=== PATIENT | female | born 1995 | race Two or more races ===

== ENCOUNTER → 2024-03-16 | Outpatient (CLI) | payer BC, SELFPAY ==
[2024-03-16 08:14] LABS: Collection Type, Urine Clean Catch
[2024-03-16 08:33] LABS: Basophils # (Auto) 0.1 Thou/mm3 (0.0-0.2); Basophils % (Auto) 1 % (0-2.5); Eosinophils # (Auto) 0.2 Thou/mm3 (0.0-0.5); Eosinophils % (Auto) 2 % (0-10); Hematocrit 40.5 % (36.0-46.0); Hemoglobin 13.7 g/dL (12.0-16.0); Immature Granulocytes % (Auto) 0 % (0-0); Immature Granulocytes Auto 0.02 Thou/mm3 (0.00-0.00); Lymphocytes # (Auto) 2.2 Thou/mm3 (1.0-4.8); Lymphocytes % (Auto) 28 % (10-50); Mean Corpuscular HGB Conc 33.8 g/dl (31.0-37.0); Mean Corpuscular Hemoglobin 26.4 pg (25.0-35.0); Mean Corpuscular Volume 78 fL (80-100); Monocytes # (Auto) 0.4 Thou/mm3 (0.0-0.8); Monocytes % (Auto) 6 % (0-12); Neutrophils # (Auto) 4.9 Thou/mm3 (1.8-7.7); Neutrophils % (Auto) 63 % (37-80); Nucleated Red Blood Cell % 0 /100 WBC (0); Platelet Count 272 Thou/mm3 (140-440); RDW Standard Deviation 39.2 fL (36.4-46.3); Red Blood Count 5.19 Miln/mm3 (4.00-5.20); White Blood Count 7.8 Thou/mm3 (3.6-11.0)
[2024-03-16 08:37] LABS: Bilirubin,Urine Negative (Negative); Blood,Urine Negative (Negative); Clarity,Urine Clear (Clear/Hazy); Color,Urine Lt-Yellow (Lt Yel-Yel); Culture Indicated,Urine Not Indicated; Glucose, Urine Negative (Negative); Ketones,Urine Negative (Negative); Leukocyte Esterase,Urine Negative (Negative); Nitrite,Urine Negative (Negative); Protein,Urine Negative (Neg - Trace); RBC,Urine 5 /hpf (0-3); Specific Gravity,Urine 1.022 (1.001-1.035); Squamous Epithelial Cell,Urine 4 /hpf (0-5); Urobilinogen,Urine Negative mg/dL (0.0-1.0); WBC,Urine 1 /hpf (0-5)
[2024-03-16 08:45] LABS: Glucose Estimated Average 134 mg/dL (80-131); Hemoglobin A1C 6.3 % Hgb (4.8-6.0)
[2024-03-16 09:13] LABS: Alanine Aminotransferase 16 U/L (10-49); Albumin, Serum 4.6 gm/dL (3.5-5.0); Albumin/Globulin Ratio 1.8 (1.2-2.2); Alkaline Phosphatase 65 U/L (46-116); Anion Gap 8 (7-16); Aspartate Amino Transferase 13 U/L (0-34); BUN/Creatinine Ratio 11 Ratio (12-20); Bilirubin,Total 0.4 mg/dL (0.3-1.2); Blood Urea Nitrogen 8 mg/dL (9-23); Calcium 9.6 mg/dL (8.3-10.6); Calcium (Corrected) 9.6 mg/dL (8.5-10.1); Carbon Dioxide 25.6 mMol/L (20.0-31.0); Cardiac Risk Estimate 5.1 RATIO (3.7-5.6); Chloride 103 mMol/L (98-107); Cholesterol 157 mg/dL (132-200); Creatinine (Component) 0.7 mg/dL (0.6-1.3); Globulin 2.5 gm/dL (2.3-3.5); Glucose 137 mg/dL (74-106); HDL Cholesterol 31 mg/dL (40-60); LDL Cholesterol,Calculated 88 mg/dL (0-130); Osmolality,Calculated 274 (275-295); Potassium 4.8 mMol/L (3.4-5.1); Sodium 137 mMol/L (136-145); Total Protein 7.1 gm/dL (5.7-8.2); Triglycerides 189 mg/dL (30-150); eGFR > 60 See Note
== END | disposition home or self-care (01) ==
LOC: COPL 06:57
PROVIDERS: PCP Family Medicine; Referring Provider Nurse Practitioner Family; Visit Provider Nurse Practitioner Family
DX: Z00.00 Encounter for general adult medical examination without abnormal findings (principal)
CPT/HCPCS: 36415; 80053; 80061; 81001; 83036; 85025

== ENCOUNTER → 2024-03-27 | Outpatient (CLI) | payer BC, SELFPAY ==
[2024-03-27 16:54] LABS: Beta HCG,Quantitative 17 mIU/mL (<5.0)
[2024-04-06 07:03] LABS: Progesterone,LC/MS* 9.5 ng/mL
== END | disposition home or self-care (01) ==
LOC: SLDO 15:07
PROVIDERS: Referring Provider Specialist; Visit Provider Specialist
DX: N93.9 Abnormal uterine and vaginal bleeding, unspecified (principal)
CPT/HCPCS: 36415; 84144; 84702

== ENCOUNTER → 2024-04-10 | Outpatient (CLI) | payer BC, SELFPAY ==
[2024-04-10 19:12] LABS: Beta HCG,Quantitative 7810 mIU/mL (<5.0)
[2024-04-14 06:35] LABS: Progesterone,LC/MS* 7.7 ng/mL
== END | disposition home or self-care (01) ==
LOC: SLDO 17:02
PROVIDERS: Referring Provider Specialist; Visit Provider Specialist
DX: O36.80X0 Pregnancy with inconclusive fetal viability, not applicable or unspecified (principal); Z3A.00 Weeks of gestation of pregnancy not specified
CPT/HCPCS: 36415; 84144; 84702

== ENCOUNTER → 2024-04-24 | Outpatient (CLI) | payer BC, SELFPAY ==
[2024-04-24 08:27] LABS: Collection Type, Urine Clean Catch
[2024-04-24 08:39] LABS: Cardiac Risk Estimate 3.5 RATIO (3.7-5.6); Cholesterol 133 mg/dL (132-200); HDL Cholesterol 38 mg/dL (40-60); LDL Cholesterol,Calculated 62 mg/dL (0-130); Triglycerides 165 mg/dL (30-150)
[2024-04-24 08:52] LABS: Glucose Estimated Average 128 mg/dL (80-131); Hemoglobin A1C 6.1 % Hgb (4.8-6.0)
[2024-04-24 10:08] LABS: Bacteria,Urine Rare; Bilirubin,Urine Negative (Negative); Blood,Urine Negative (Negative); Color,Urine Yellow (Lt Yel-Yel); Culture Indicated,Urine Not Indicated; Glucose, Urine Negative (Negative); Ketones,Urine Negative (Negative); Leukocyte Esterase,Urine Positive (Negative); Nitrite,Urine Negative (Negative); PH,Urine 6.5 (5.0-7.0); Protein,Urine 1+ (Neg - Trace); Specific Gravity,Urine 1.031 (1.001-1.035); Urobilinogen,Urine Negative mg/dL (0.0-1.0)
[2024-04-24 12:53] LABS: Clarity,Urine Clear (Clear/Hazy); RBC,Urine 2 /hpf (0-3); Squamous Epithelial Cell,Urine 13 /hpf (0-5); WBC,Urine 3 /hpf (0-5)
== END | disposition home or self-care (01) ==
PROVIDERS: PCP Family Medicine; Referring Provider Nurse Practitioner Family; Visit Provider Nurse Practitioner Family
DX: R31.21 Asymptomatic microscopic hematuria (principal); E78.1 Pure hyperglyceridemia; R73.03 Prediabetes
CPT/HCPCS: 36415; 80061; 81001; 83036

== ENCOUNTER → 2024-06-09 | Outpatient (CLI) | payer BC, SELFPAY ==
[2024-06-09 14:53] LABS: Collection Type, Urine Clean Catch; RBC,Urine 0 /hpf (0-3)
[2024-06-09 16:17] LABS: Amphetamine/Methamp Scrn,U Negative (Negative); Barbiturate Screen,Urine Negative (Negative); Benzodiazepines Screen,Urine Negative (Negative); Benzoylecgonine Screen, Ur Negative (Negative); Fentanyl Screen,Urine Negative (Negative); Opiate Screen,Urine Negative (Negative); THC Screen,Urine Negative (Negative)
[2024-06-09 17:47] LABS: Amorphous Crystals,Urine Present (Absent); Bilirubin,Urine Negative (Negative); Blood,Urine Negative (Negative); Clarity,Urine Turbid (Clear/Hazy); Color,Urine Yellow (Lt Yel-Yel); Glucose, Urine Negative (Negative); Ketones,Urine Negative (Negative); Leukocyte Esterase,Urine Negative (Negative); Nitrite,Urine Negative (Negative); Protein,Urine Negative (Neg - Trace); Specific Gravity,Urine 1.016 (1.001-1.035); Squamous Epithelial Cell,Urine 8 /hpf (0-5); Urobilinogen,Urine Negative mg/dL (0.0-1.0); WBC,Urine 1 /hpf (0-5)
== END | disposition home or self-care (01) ==
LOC: SLDO 14:32
PROVIDERS: Referring Provider Specialist; Visit Provider Specialist
DX: Z34.81 Encounter for supervision of other normal pregnancy, first trimester (principal)
CPT/HCPCS: 80307; 81001; 87086

== ENCOUNTER → 2024-06-27 | Outpatient (CLI) | payer BC, SELFPAY ==
[2024-06-27 17:32] LABS: Misc Send Out* See Sep Rpt
[2024-06-27 17:47] LABS: Basophils % (Auto) 0 % (0-2.5); Eosinophils # (Auto) 0.2 Thou/mm3 (0.0-0.5); Eosinophils % (Auto) 2 % (0-10); Hematocrit 35.3 % (36.0-46.0); Hemoglobin 12.7 g/dL (12.0-16.0); Immature Granulocytes % (Auto) 0 % (0-0); Immature Granulocytes Auto 0.03 Thou/mm3 (0.00-0.00); Lymphocytes # (Auto) 2.6 Thou/mm3 (1.0-4.8); Lymphocytes % (Auto) 27 % (10-50); Mean Corpuscular Volume 78 fL (80-100); Monocytes # (Auto) 0.5 Thou/mm3 (0.0-0.8); Monocytes % (Auto) 5 % (0-12); Neutrophils # (Auto) 6.4 Thou/mm3 (1.8-7.7); Neutrophils % (Auto) 66 % (37-80); Nucleated Red Blood Cell % 0 /100 WBC (0); Platelet Count 231 Thou/mm3 (140-440); RDW Standard Deviation 38.6 fL (36.4-46.3); Red Blood Count 4.54 Miln/mm3 (4.00-5.20); White Blood Count 9.8 Thou/mm3 (3.6-11.0)
[2024-06-27 18:52] LABS: Glucose Estimated Average 120 mg/dL (80-131); Hemoglobin A1C 5.8 % Hgb (4.8-6.0)
[2024-06-27 19:07] LABS: Hepatitis B Surface Antigen Non Reactive (Non React); Rubella, IgG Antibody Reactive (Immune)
[2024-06-27 23:52] LABS: Creatinine (Component) 0.5 mg/dL (0.6-1.3); Free T4 (Free Thyroxine) 1.09 ng/dL (0.89-1.76); Glucose 82 mg/dL (74-106); Thyroid Stimulating Hormone 1.37 uIU/mL (0.55-4.78); eGFR > 60 See Note
[2024-06-28 01:31] LABS: Beta HCG,Quantitative 19384 mIU/mL (<5.0)
[2024-06-28 11:52] LABS: T4 (Thyroxine) 16.5 mcg/dL (4.5-10.9)
[2024-07-03 17:49] LABS: HCV RNA, PCR <15 NOT DETECTED IU/mL
[2024-07-05 06:41] LABS: HCV RNA, PCR Log IU <1.18 NOT DETECTED Log IU/mL; HIV Ag/Ab, 4th Gen NON-REACTIVE; T3,Total* 255 ng/dL (76-181); TSI, Thyroid Stimulating Ig* <89 % baseline (<140); Thyroid Peroxidase Antibodies* 813 IU/mL (<9)
== END | disposition home or self-care (01) ==
LOC: COPL 17:10
PROVIDERS: PCP Nurse Practitioner Family; Referring Provider Internal Medicine; Visit Provider Specialist
DX: Z34.81 Encounter for supervision of other normal pregnancy, first trimester (principal); E04.1 Nontoxic single thyroid nodule
CPT/HCPCS: 36415; 82565; 82947; 83036; 84436; 84439; 84443; 84445; 84480; 84702; 85025; 86376; 86762; 86850; 86900; 86901; 87340; 87389; 87522

== ENCOUNTER → 2024-07-07 | Outpatient (CLI) | payer BC, SELFPAY ==
[2024-07-07 17:18] LABS: Free T4 (Free Thyroxine) 1.06 ng/dL (0.89-1.76); Thyroid Stimulating Hormone 1.66 uIU/mL (0.55-4.78)
[2024-07-08 09:02] LABS: Bacterial Vaginosis Markers Negative (Negative)
[2024-07-08 11:13] LABS: BVAG Candida Negative (Negative); Candida glabrata Negative (Negative); Candida krusei PCR Negative (Negative); Trichomonas Negative (Negative)
== END | disposition home or self-care (01) ==
LOC: SLDO 15:13
PROVIDERS: Referring Provider Physician Assistant Medical; Visit Provider Physician Assistant Medical
DX: O98.311 Other infections with a predominantly sexual mode of transmission complicating pregnancy, first trimester (principal); A59.01 Trichomonal vulvovaginitis; O23.591 Infection of other part of genital tract in pregnancy, first trimester; N76.0 Acute vaginitis; O98.811 Other maternal infectious and parasitic diseases complicating pregnancy, first trimester; B37.89 Other sites of candidiasis; Z3A.00 Weeks of gestation of pregnancy not specified
CPT/HCPCS: 36415; 81514; 84439; 84443

== ENCOUNTER → 2024-08-24 | Outpatient (CLI) | payer BC, SELFPAY ==
[2024-08-24 07:27] LABS: Misc Send Out* See Sep Rpt; Quantiferon-TB* See Sep Rpt
[2024-08-24 09:00] LABS: T4 (Thyroxine) 15.9 mcg/dL (4.5-10.9)
[2024-08-24 09:05] LABS: Free T4 (Free Thyroxine) 1.05 ng/dL (0.89-1.76); Thyroid Stimulating Hormone 1.11 uIU/mL (0.55-4.78)
[2024-08-29 07:07] LABS: T3,Total* 265 ng/dL (76-181); Thyroid Peroxidase Antibodies* 730 IU/mL (<9)
== END | disposition home or self-care (01) ==
LOC: COPL 07:09
PROVIDERS: PCP Family Medicine; Referring Provider Internal Medicine; Visit Provider Specialist
DX: Z34.81 Encounter for supervision of other normal pregnancy, first trimester (principal); E04.1 Nontoxic single thyroid nodule
CPT/HCPCS: 36415; 84436; 84439; 84443; 84445; 84480; 86376; 86480

== ENCOUNTER → 2024-09-19 | Outpatient (CLI) | payer BC, SELFPAY ==
[2024-09-19 16:53] LABS: Glucose,1 Hour PP 50gm Dose 127 mg/dL (80-140)
== END | disposition home or self-care (01) ==
LOC: SLDO 14:38
PROVIDERS: Referring Provider Specialist; Visit Provider Specialist
DX: Z34.82 Encounter for supervision of other normal pregnancy, second trimester (principal)
CPT/HCPCS: 36415; 82950

== ENCOUNTER → 2024-10-03 | Outpatient (CLI) | payer BC, SELFPAY ==
[2024-10-03 15:55] LABS: Basophils # (Auto) 0.0 Thou/mm3 (0.0-0.2); Basophils % (Auto) 0 % (0-2.5); Eosinophils # (Auto) 0.1 Thou/mm3 (0.0-0.5); Eosinophils % (Auto) 1 % (0-10); Hematocrit 40.0 % (36.0-46.0); Hemoglobin 12.6 g/dL (12.0-16.0); Immature Granulocytes Auto 0.06 Thou/mm3 (0.00-0.00); Lymphocytes # (Auto) 2.1 Thou/mm3 (1.0-4.8); Lymphocytes % (Auto) 20 % (10-50); Mean Corpuscular HGB Conc 31.5 g/dl (31.0-37.0); Mean Corpuscular Hemoglobin 29.1 pg (25.0-35.0); Mean Corpuscular Volume 92 fL (80-100); Monocytes # (Auto) 0.6 Thou/mm3 (0.0-0.8); Monocytes % (Auto) 6 % (0-12); Neutrophils # (Auto) 7.6 Thou/mm3 (1.8-7.7); Neutrophils % (Auto) 73 % (37-80); Nucleated Red Blood Cell # 0.00 Thou/mm3 (0.00-0.00); Nucleated Red Blood Cell % 0 /100 WBC (0); Platelet Count 227 Thou/mm3 (140-440); RDW Standard Deviation 51.1 fL (36.4-46.3); Red Blood Count 4.33 Miln/mm3 (4.00-5.20); White Blood Count 10.5 Thou/mm3 (3.6-11.0)
[2024-10-03 16:20] LABS: Alanine Aminotransferase 9 U/L (10-49); Albumin, Serum 3.6 gm/dL (3.5-5.0); Albumin/Globulin Ratio 1.6 (1.2-2.2); Alkaline Phosphatase 68 U/L (46-116); Anion Gap 10 (7-16); Aspartate Amino Transferase 12 U/L (0-34); BUN/Creatinine Ratio 10 Ratio (12-20); Bilirubin,Total 0.3 mg/dL (0.3-1.2); Blood Urea Nitrogen < 5 mg/dL (9-23); Calcium 8.5 mg/dL (8.3-10.6); Calcium (Corrected) 8.8 mg/dL (8.5-10.1); Carbon Dioxide 22.4 mMol/L (20.0-31.0); Chloride 110 mMol/L (98-107); Creatinine (Component) 0.5 mg/dL (0.6-1.3); Globulin 2.3 gm/dL (2.3-3.5); Glucose 122 mg/dL (74-106); Magnesium 1.6 mg/dL (1.6-2.6); Osmolality,Calculated 281 (275-295); Potassium 3.8 mMol/L (3.4-5.1); Sodium 142 mMol/L (136-145); Total Protein 5.9 gm/dL (5.7-8.2); eGFR > 60 See Note
[2024-10-03 16:26] LABS: Syphilis Nonreactive (Nonreactive)
== END | disposition home or self-care (01) ==
LOC: SLDO 14:02
PROVIDERS: Referring Provider Specialist; Visit Provider Specialist
DX: Z34.83 Encounter for supervision of other normal pregnancy, third trimester (principal)
CPT/HCPCS: 36415; 80053; 83735; 85025; 86780

== ENCOUNTER → 2024-10-13 | Outpatient (CLI) | payer BC, SELFPAY ==
[2024-10-13 17:43] LABS: Free T4 (Free Thyroxine) 0.98 ng/dL (0.89-1.76); Thyroid Stimulating Hormone 0.98 uIU/mL (0.55-4.78)
[2024-10-13 17:56] LABS: T4 (Thyroxine) 14.0 mcg/dL (4.5-10.9)
[2024-10-23 07:40] LABS: T3,Total* 210 ng/dL (76-181)
== END | disposition home or self-care (01) ==
LOC: COPL 16:19
PROVIDERS: PCP Nurse Practitioner Family; Referring Provider Internal Medicine; Visit Provider Internal Medicine
DX: Z34.90 Encounter for supervision of normal pregnancy, unspecified, unspecified trimester (principal); E06.3 Autoimmune thyroiditis
CPT/HCPCS: 36415; 84436; 84439; 84443; 84480

== ENCOUNTER 2024-10-17 15:36 | Observation (INO) | payer BC, SELFPAY ==
[2024-10-17] VITALS (19 sets, daily range): BP systolic 125–136; BP diastolic 67–73; PULSE 83–105; RESP 18–96; TEMP 37.2; O2SAT 96–99; BMI 43.6
--- NOTE | 2024-10-17 16:03 | XR_ITS ---
Examination: Complete OB ultrasound greater than 14 weeks Date and time of exam: October 17, 2024 1623 hours INDICATIONS: Onset vaginal bleeding today Findings: Viable intrauterine single fetus with single amniotic sac presentation cephalic. spine maternal right. Cardiac motion 132 BPM. Placenta posterior lower No abruption grade 3 Umbilical cord insertion seen. Amniotic fluid index 5.7 cm Cervix 4.2 cm closed Ovaries obscured by bowel gas. Composite estimated gestational age based on BPD, head circumference, abdominal circumference, femur length is 33 weeks 2 days Estimated weight 2575 g. Survey of intracranial anatomy, spinal anatomy, abdominal anatomy, four-chamber heart performed with no abnormalities identified. Impression: A viable intrauterine gestation cephalic presentation Low-lying placenta, no abruption.
[2024-10-17] MEDS: RINGERS LACTATED 1000 ML 1,000 ML 100 ML IV (16:20)
[2024-10-17 16:33] LABS: Collection Type, Urine Clean Catch
[2024-10-17 16:42] LABS: Basophils # (Auto) 0.0 Thou/mm3 (0.0-0.2); Basophils % (Auto) 0 % (0-2.5); Eosinophils # (Auto) 0.1 Thou/mm3 (0.0-0.5); Eosinophils % (Auto) 1 % (0-10); Hematocrit 33.6 % (36.0-46.0); Hemoglobin 12.2 g/dL (12.0-16.0); Immature Granulocytes Auto 0.05 Thou/mm3 (0.00-0.00); Lymphocytes # (Auto) 1.8 Thou/mm3 (1.0-4.8); Lymphocytes % (Auto) 19 % (10-50); Mean Corpuscular HGB Conc 36.3 g/dl (31.0-37.0); Mean Corpuscular Hemoglobin 28.7 pg (25.0-35.0); Mean Corpuscular Volume 79 fL (80-100); Monocytes # (Auto) 0.6 Thou/mm3 (0.0-0.8); Monocytes % (Auto) 6 % (0-12); Neutrophils # (Auto) 6.9 Thou/mm3 (1.8-7.7); Neutrophils % (Auto) 73 % (37-80); Nucleated Red Blood Cell # 0.00 Thou/mm3 (0.00-0.00); Nucleated Red Blood Cell % 0 /100 WBC (0); Platelet Count 198 Thou/mm3 (140-440); RDW Standard Deviation 39.3 fL (36.4-46.3); Red Blood Count 4.25 Miln/mm3 (4.00-5.20); White Blood Count 9.4 Thou/mm3 (3.6-11.0)
[2024-10-17 17:17] LABS: Bacteria,Urine 3+; Bilirubin,Urine Negative (Negative); Blood,Urine 3+ (Negative); Clarity,Urine Turbid (Clear/Hazy); Color,Urine Yellow (Lt Yel-Yel); Culture Indicated,Urine Contaminated; Glucose, Urine Negative (Negative); Hyaline Casts,Urine < 1 /hpf (0-1); Ketones,Urine Negative (Negative); Leukocyte Esterase,Urine Positive (Negative); Nitrite,Urine Negative (Negative); PH,Urine 6.5 (5.0-7.0); Protein,Urine 1+ (Neg - Trace); RBC,Urine 18 /hpf (0-3); Specific Gravity,Urine 1.019 (1.001-1.035); Squamous Epithelial Cell,Urine 28 /hpf (0-5); Urobilinogen,Urine 2.0 mg/dL (0.0-1.0); WBC,Urine 84 /hpf (0-5)
[2024-10-17 17:30] LABS: Syphilis Nonreactive (Nonreactive)
== END 2024-10-17 18:25 | disposition home or self-care (01) ==
PROVIDERS: Admitting Provider Specialist; PCP Nurse Practitioner Family; Visit Provider Specialist
DX: O44.53 Low lying placenta with hemorrhage, third trimester (principal); Z3A.33 33 weeks gestation of pregnancy
CPT/HCPCS: 36415; 59025; 59899; 76805; 81001; 85025; 86780; 86850; 86900; 86901; J7120

== ENCOUNTER → 2024-10-23 | Outpatient (CLI) | payer BC, SELFPAY ==
[2024-10-23 10:49] LABS: Basophils # (Auto) 0.0 Thou/mm3 (0.0-0.2); Basophils % (Auto) 0 % (0-2.5); Eosinophils # (Auto) 0.1 Thou/mm3 (0.0-0.5); Eosinophils % (Auto) 1 % (0-10); Hematocrit 36.4 % (36.0-46.0); Hemoglobin 12.5 g/dL (12.0-16.0); Immature Granulocytes Auto 0.04 Thou/mm3 (0.00-0.00); Lymphocytes # (Auto) 1.4 Thou/mm3 (1.0-4.8); Lymphocytes % (Auto) 17 % (10-50); Mean Corpuscular HGB Conc 34.3 g/dl (31.0-37.0); Mean Corpuscular Hemoglobin 28.7 pg (25.0-35.0); Mean Corpuscular Volume 84 fL (80-100); Monocytes # (Auto) 0.5 Thou/mm3 (0.0-0.8); Monocytes % (Auto) 6 % (0-12); Neutrophils # (Auto) 6.1 Thou/mm3 (1.8-7.7); Neutrophils % (Auto) 75 % (37-80); Nucleated Red Blood Cell # 0.00 Thou/mm3 (0.00-0.00); Nucleated Red Blood Cell % 0 /100 WBC (0); Platelet Count 188 Thou/mm3 (140-440); RDW Standard Deviation 41.5 fL (36.4-46.3); Red Blood Count 4.36 Miln/mm3 (4.00-5.20); White Blood Count 8.2 Thou/mm3 (3.6-11.0)
[2024-10-23 11:02] LABS: INR 1.0 (0.9-1.3); Partial Thromboplastin Time 27.7 Seconds (22.0-36.0); Prothrombin Time 10.5 Seconds (9.0-12.2)
[2024-10-23 11:11] LABS: Alanine Aminotransferase 7 U/L (10-49); Albumin, Serum 3.7 gm/dL (3.5-5.0); Albumin/Globulin Ratio 1.4 (1.2-2.2); Alkaline Phosphatase 95 U/L (46-116); Anion Gap 12 (7-16); Aspartate Amino Transferase 16 U/L (0-34); BUN/Creatinine Ratio 12 Ratio (12-20); Bilirubin,Total 0.4 mg/dL (0.3-1.2); Blood Urea Nitrogen 6 mg/dL (9-23); Calcium 9.2 mg/dL (8.3-10.6); Calcium (Corrected) 9.4 mg/dL (8.5-10.1); Carbon Dioxide 21.6 mMol/L (20.0-31.0); Chloride 106 mMol/L (98-107); Creatinine (Component) 0.5 mg/dL (0.6-1.3); Globulin 2.6 gm/dL (2.3-3.5); Glucose 134 mg/dL (74-106); Osmolality,Calculated 279 (275-295); Potassium 3.7 mMol/L (3.4-5.1); Sodium 140 mMol/L (136-145); Total Protein 6.3 gm/dL (5.7-8.2); Uric Acid 4.0 mg/dL (3.1-7.8); eGFR > 60 See Note
[2024-10-23 11:58] LABS: Fibrinogen 724 mg/dL (175-375)
[2024-10-23 15:54] LABS: Protein Total, Random Urine 57 mg/dL (1-14)
== END | disposition home or self-care (01) ==
PROVIDERS: PCP Physician Assistant Medical; Referring Provider Physician Assistant Medical; Visit Provider Physician Assistant Medical
DX: I10 Essential (primary) hypertension (principal)
CPT/HCPCS: 36415; 80053; 84156; 84550; 85025; 85384; 85610; 85730

== ENCOUNTER → 2024-10-25 | Outpatient (CLI) | payer BC, SELFPAY ==
[2024-10-25 17:04] LABS: Creatinine,Urine 59 mg/dL (30-125); Protein Total, Urine 22 mg/dL (1-14)
[2024-10-25 17:34] LABS: Creatinine, 24 Hour Urine 1.4 gm/24hr (0.6-1.8); Creatinine, Urine Volume 2330 mL/24hr (600-1800); Protein Total, 24 hr Urine 513 mg/24hr (<149); Protein Total, Urine Volume 2330 mL/24hr (600-1800)
== END | disposition home or self-care (01) ==
LOC: SLDO 15:45
PROVIDERS: Referring Provider Physician Assistant Medical; Visit Provider Physician Assistant Medical
DX: I10 Essential (primary) hypertension (principal)
CPT/HCPCS: 82570; 84156

== ENCOUNTER 2024-10-26 19:07 | Outpatient (CLI) | payer BC, SELFPAY ==
[2024-10-26] VITALS (11 sets, daily range): BP systolic 133; BP diastolic 59; PULSE 89–102; RESP 18–98; TEMP 37.1; O2SAT 98–100; BMI 43.5
[2024-10-26] MEDS: BETAMET ACET/BETAMET NA PH (Celestone) 6 MG/ML VIAL 12 MG IM (19:42)
== END 2024-10-26 20:00 | disposition home or self-care (01) ==
LOC: S4S1 19:10 → S4SX 19:11
PROVIDERS: Referring Provider Obstetrics & Gynecology; Visit Provider Obstetrics & Gynecology
DX: Z34.03 Encounter for supervision of normal first pregnancy, third trimester (principal); Z36.9 Encounter for antenatal screening, unspecified; Z3A.33 33 weeks gestation of pregnancy
CPT/HCPCS: 59025; 96372; J0702

== ENCOUNTER 2024-10-27 18:48 | Observation (INO) | payer BC, SELFPAY ==
[2024-10-27] VITALS (12 sets, daily range): BP systolic 120–132; BP diastolic 59–65; PULSE 91–100; RESP 16–99; TEMP 36.9; O2SAT 97; BMI 43.7
[2024-10-27] MEDS: BETAMET ACET/BETAMET NA PH (Celestone) 6 MG/ML VIAL 12 MG IM (19:46)
== END 2024-10-27 20:00 | disposition home or self-care (01) ==
PROVIDERS: Admitting Provider Obstetrics & Gynecology; Visit Provider Obstetrics & Gynecology
DX: Z34.03 Encounter for supervision of normal first pregnancy, third trimester (principal); Z3A.33 33 weeks gestation of pregnancy
CPT/HCPCS: 59025; 59899; 96372; J0702

== ENCOUNTER → 2024-10-30 | Outpatient (CLI) | payer BC, SELFPAY ==
[2024-10-30 17:47] LABS: Glucose,1 Hour PP 50gm Dose 241 mg/dL (80-140)
== END | disposition home or self-care (01) ==
LOC: SLDO 15:40
PROVIDERS: Referring Provider Specialist; Visit Provider Specialist
DX: Z34.83 Encounter for supervision of other normal pregnancy, third trimester (principal)
CPT/HCPCS: 36415; 82950

== ENCOUNTER → 2024-10-30 | Outpatient (CLI) | payer BC, SELFPAY ==
[2024-10-30 17:38] LABS: Basophils # (Auto) 0.0 Thou/mm3 (0.0-0.2); Basophils % (Auto) 0 % (0-2.5); Eosinophils # (Auto) 0.1 Thou/mm3 (0.0-0.5); Eosinophils % (Auto) 1 % (0-10); Hematocrit 35.0 % (36.0-46.0); Hemoglobin 12.2 g/dL (12.0-16.0); Immature Granulocytes Auto 0.06 Thou/mm3 (0.00-0.00); Lymphocytes # (Auto) 1.7 Thou/mm3 (1.0-4.8); Lymphocytes % (Auto) 19 % (10-50); Mean Corpuscular HGB Conc 34.9 g/dl (31.0-37.0); Mean Corpuscular Hemoglobin 29.0 pg (25.0-35.0); Mean Corpuscular Volume 83 fL (80-100); Monocytes # (Auto) 0.6 Thou/mm3 (0.0-0.8); Monocytes % (Auto) 7 % (0-12); Neutrophils # (Auto) 6.6 Thou/mm3 (1.8-7.7); Neutrophils % (Auto) 73 % (37-80); Nucleated Red Blood Cell # 0.00 Thou/mm3 (0.00-0.00); Nucleated Red Blood Cell % 0 /100 WBC (0); Platelet Count 197 Thou/mm3 (140-440); RDW Standard Deviation 42.2 fL (36.4-46.3); Red Blood Count 4.21 Miln/mm3 (4.00-5.20); White Blood Count 9.1 Thou/mm3 (3.6-11.0)
[2024-10-30 17:49] LABS: Fibrinogen 589 mg/dL (175-375); INR 0.9 (0.9-1.3); Partial Thromboplastin Time 26.2 Seconds (22.0-36.0); Prothrombin Time 10.3 Seconds (9.0-12.2)
[2024-10-30 17:55] LABS: Alanine Aminotransferase 7 U/L (10-49); Albumin, Serum 3.4 gm/dL (3.5-5.0); Albumin/Globulin Ratio 1.3 (1.2-2.2); Alkaline Phosphatase 103 U/L (46-116); Anion Gap 11 (7-16); Aspartate Amino Transferase 15 U/L (0-34); BUN/Creatinine Ratio 10 Ratio (12-20); Bilirubin,Total 0.3 mg/dL (0.3-1.2); Blood Urea Nitrogen 6 mg/dL (9-23); Calcium 8.5 mg/dL (8.3-10.6); Calcium (Corrected) 9.0 mg/dL (8.5-10.1); Carbon Dioxide 21.9 mMol/L (20.0-31.0); Chloride 106 mMol/L (98-107); Creatinine (Component) 0.6 mg/dL (0.6-1.3); Globulin 2.6 gm/dL (2.3-3.5); Glucose 209 mg/dL (74-106); Osmolality,Calculated 281 (275-295); Potassium 3.6 mMol/L (3.4-5.1); Sodium 139 mMol/L (136-145); Total Protein 6.0 gm/dL (5.7-8.2); eGFR > 60 See Note
== END | disposition home or self-care (01) ==
PROVIDERS: PCP Family Medicine; Referring Provider Specialist; Visit Provider Specialist
DX: O14.00 Mild to moderate pre-eclampsia, unspecified trimester (principal)
CPT/HCPCS: 36415; 80053; 85025; 85384; 85610; 85730

== ENCOUNTER → 2024-11-09 | Outpatient (CLI) | payer BC, SELFPAY ==
[2024-11-09 12:06] LABS: Basophils # (Auto) 0.0 Thou/mm3 (0.0-0.2); Basophils % (Auto) 0 % (0-2.5); Eosinophils # (Auto) 0.1 Thou/mm3 (0.0-0.5); Eosinophils % (Auto) 1 % (0-10); Hematocrit 38.2 % (36.0-46.0); Hemoglobin 13.5 g/dL (12.0-16.0); Immature Granulocytes Auto 0.04 Thou/mm3 (0.00-0.00); Lymphocytes # (Auto) 1.4 Thou/mm3 (1.0-4.8); Lymphocytes % (Auto) 18 % (10-50); Mean Corpuscular HGB Conc 35.3 g/dl (31.0-37.0); Mean Corpuscular Hemoglobin 29.4 pg (25.0-35.0); Mean Corpuscular Volume 83 fL (80-100); Monocytes # (Auto) 0.5 Thou/mm3 (0.0-0.8); Monocytes % (Auto) 6 % (0-12); Neutrophils # (Auto) 5.8 Thou/mm3 (1.8-7.7); Neutrophils % (Auto) 74 % (37-80); Nucleated Red Blood Cell # 0.00 Thou/mm3 (0.00-0.00); Nucleated Red Blood Cell % 0 /100 WBC (0); Platelet Count 173 Thou/mm3 (140-440); RDW Standard Deviation 42.7 fL (36.4-46.3); Red Blood Count 4.59 Miln/mm3 (4.00-5.20); White Blood Count 7.9 Thou/mm3 (3.6-11.0)
[2024-11-09 12:24] LABS: INR 0.9 (0.9-1.3); Partial Thromboplastin Time 27.2 Seconds (22.0-36.0); Prothrombin Time 10.4 Seconds (9.0-12.2)
[2024-11-09 12:46] LABS: Alanine Aminotransferase 9 U/L (10-49); Albumin, Serum 3.6 gm/dL (3.5-5.0); Albumin/Globulin Ratio 1.4 (1.2-2.2); Alkaline Phosphatase 127 U/L (46-116); Anion Gap 13 (7-16); Aspartate Amino Transferase 16 U/L (0-34); BUN/Creatinine Ratio 8 Ratio (12-20); Bilirubin,Total 0.4 mg/dL (0.3-1.2); Blood Urea Nitrogen < 5 mg/dL (9-23); Calcium 9.1 mg/dL (8.3-10.6); Calcium (Corrected) 9.4 mg/dL (8.5-10.1); Carbon Dioxide 20.3 mMol/L (20.0-31.0); Chloride 105 mMol/L (98-107); Creatinine (Component) 0.6 mg/dL (0.6-1.3); Globulin 2.5 gm/dL (2.3-3.5); Glucose 155 mg/dL (74-106); Osmolality,Calculated 275 (275-295); Potassium 4.1 mMol/L (3.4-5.1); Sodium 138 mMol/L (136-145); Total Protein 6.1 gm/dL (5.7-8.2); Uric Acid 4.2 mg/dL (3.1-7.8); eGFR > 60 See Note
[2024-11-09 13:08] LABS: Fibrinogen 693 mg/dL (175-375)
== END | disposition home or self-care (01) ==
LOC: COPL 11:12
PROVIDERS: PCP Family Medicine; Referring Provider Physician Assistant Medical; Visit Provider Physician Assistant Medical
DX: O14.00 Mild to moderate pre-eclampsia, unspecified trimester (principal); Z3A.00 Weeks of gestation of pregnancy not specified
CPT/HCPCS: 36415; 80053; 84550; 85025; 85384; 85610; 85730

== ENCOUNTER 2024-11-13 09:39 | Outpatient (CLI) | payer BC, SELFPAY ==
[2024-11-13 09:44] VITALS: BP 129/61; PULSE 89
[2024-11-13 09:59] VITALS: BP 129/61; PULSE 87; RESP 16; RESP 97; TEMP 37; BMI 45.1
[2024-11-13 10:00] VITALS: RESP 16; TEMP 37; O2SAT 97
[2024-11-13 10:18] VITALS: BP 127/77; PULSE 79
[2024-11-13 10:38] VITALS: BP 126/76; PULSE 82
[2024-11-13 10:58] VITALS: BP 131/67; PULSE 77
== END 2024-11-13 11:20 | disposition home or self-care (01) ==
LOC: S4S1 09:40 → S4SX 09:41
PROVIDERS: Referring Provider Obstetrics & Gynecology; Visit Provider Obstetrics & Gynecology
DX: Z34.03 Encounter for supervision of normal first pregnancy, third trimester (principal); Z36.89 Encounter for other specified antenatal screening; Z3A.36 36 weeks gestation of pregnancy
CPT/HCPCS: 59025

== ENCOUNTER 2024-11-20 06:14 | Inpatient (IN) | payer BC, SELFPAY ==
--- NOTE | 2024-11-17 09:30 | ESHP_ITS ---
RE: SALIMA HERNANDEZ : 1995 DATE OF ADMISSION: 11/20/2024 HISTORY OF PRESENT ILLNESS: This is a 29-year-old 1 para 0 with due date of 12/10/2024 with intrauterine at 37 weeks and 1 day on 11/20/2024, who presents for delivery for preeclampsia. The patient's was complicated by preeclampsia without severe features. She started having elevated blood pressures in the first trimester, which were elevated in the office, but normal at home. The patient had a 24-hour urine collection on 10/25/2024, which showed 500 mg of protein over 24 hours consistent with preeclampsia. She received betamethasone on 10/26/2024 and then on 10/27/2024. She has been undergoing serial ultrasounds with [facility] and her most recent ultrasound on 11/15/2024 showed estimated weight 4328 g or 9 pounds 9 ounces. The patient originally had a 1-hour glucose tolerance test at 26 weeks, which was normal. However, her ultrasound on 10/20/2024 showed growth at greater than 99th percentile, so a 1- hour GTT was repeated and it was 241, so the patient was placed on an ADA diet and quickly found to have elevated sugars despite the ADA diet, so she was started on insulin. The patient denies any leaking or bleeding. She reports normal movement. She has occasional contractions. She denies any headache, change in vision or right upper quadrant pain. PAST MEDICAL HISTORY: Polycystic ovarian syndrome, BMI 45, benign thyroid nodules, infertility, and borderline chronic hypertension. Seasonal Allergies. ALLERGIES: WALNUTS, IBUPROFEN, ASPIRIN, AND CLOMID. MEDICATIONS: 1. Humulin N 40 units before breakfast and 20 units at bedtime. 2. Humalog 16 units before breakfast and 16 units with dinner. 3. Aspirin 81 mg 1 p.o. daily. 4. Claritin 10 mg 1 p.o. daily. 5. vitamin 1 p.o. daily. SOCIAL HISTORY: She denies any alcohol, drug use or smoking. She is . PAST SURGICAL HISTORY: Tonsillectomy and thyroid biopsy. REVIEW OF SYSTEMS: She denies any chest pain, palpitations, cough, fever, shortness of breath, flank pain or lower extremity pain. PHYSICAL EXAMINATION: VITAL SIGNS: Blood pressure is 129/69, heart rate 87, respirations 18, temperature is 98.6, and weight 283 pounds. HEENT: Oropharynx and sclerae are clear. LUNGS: Clear to auscultation bilaterally. HEART: Regular rate and rhythm. ABDOMEN: Gravid term size consistent with 9.5 pounds. PELVIC: Deferred. EXTREMITIES: Nontender. SKIN: No gross rashes or lesions. NEUROLOGIC: No focal deficits. ASSESSMENT: Intrauterine at 37 weeks and 1 day on 11/20/2024, preeclampsia without severe features, borderline chronic hypertension, gestational diabetes mellitus, class A2, poorly controlled, and suspected macrosomia. PLAN: delivery. Informed consent was obtained. The patient was made aware of the risks, complications, alternatives, and benefits of the proposed procedure and she agrees. The patient was made aware of the possibility that the estimated weight on her ultrasound on 11/15/2024 can overestimate and underestimate the weight by approximately 1 pound. She is aware that with macrosomia, there is an increased risk of shoulder dystocia and we discussed the neurological injury that can occur to her if a shoulder dystocia occurs. The patient verbalized understanding and agreed to proceed with delivery. DT: 14:05:26 TT: 16:20:00 Ref: [id number] - TID: [id number] MTDD
[2024-11-17 12:09] LABS: Basophils # (Auto) 0.0 Thou/mm3 (0.0-0.2); Basophils % (Auto) 0 % (0-2.5); Eosinophils # (Auto) 0.1 Thou/mm3 (0.0-0.5); Eosinophils % (Auto) 1 % (0-10); Hematocrit 37.4 % (36.0-46.0); Hemoglobin 13.0 g/dL (12.0-16.0); Immature Granulocytes Auto 0.03 Thou/mm3 (0.00-0.00); Lymphocytes # (Auto) 1.6 Thou/mm3 (1.0-4.8); Lymphocytes % (Auto) 21 % (10-50); Mean Corpuscular HGB Conc 34.8 g/dl (31.0-37.0); Mean Corpuscular Hemoglobin 29.0 pg (25.0-35.0); Mean Corpuscular Volume 83 fL (80-100); Monocytes # (Auto) 0.4 Thou/mm3 (0.0-0.8); Monocytes % (Auto) 6 % (0-12); Neutrophils # (Auto) 5.3 Thou/mm3 (1.8-7.7); Neutrophils % (Auto) 72 % (37-80); Nucleated Red Blood Cell # 0.00 Thou/mm3 (0.00-0.00); Nucleated Red Blood Cell % 0 /100 WBC (0); Platelet Count 184 Thou/mm3 (140-440); RDW Standard Deviation 42.7 fL (36.4-46.3); Red Blood Count 4.49 Miln/mm3 (4.00-5.20); White Blood Count 7.4 Thou/mm3 (3.6-11.0)
[2024-11-17 12:37] LABS: Alanine Aminotransferase < 7 U/L (10-49); Albumin, Serum 3.2 gm/dL (3.5-5.0); Albumin/Globulin Ratio 1.3 (1.2-2.2); Alkaline Phosphatase 137 U/L (46-116); Anion Gap 11 (7-16); Aspartate Amino Transferase 25 U/L (0-34); BUN/Creatinine Ratio 10 Ratio (12-20); Bilirubin,Total 0.4 mg/dL (0.3-1.2); Blood Urea Nitrogen 6 mg/dL (9-23); Calcium 9.0 mg/dL (8.3-10.6); Calcium (Corrected) 9.6 mg/dL (8.5-10.1); Carbon Dioxide 20.0 mMol/L (20.0-31.0); Chloride 108 mMol/L (98-107); Creatinine (Component) 0.6 mg/dL (0.6-1.3); Globulin 2.4 gm/dL (2.3-3.5); Glucose 146 mg/dL (74-106); Osmolality,Calculated 278 (275-295); Potassium 3.8 mMol/L (3.4-5.1); Sodium 139 mMol/L (136-145); Total Protein 5.6 gm/dL (5.7-8.2); eGFR > 60 See Note
[2024-11-17 12:53] LABS: INR 0.9 (0.9-1.3); Partial Thromboplastin Time 27.2 Seconds (22.0-36.0); Prothrombin Time 10.1 Seconds (9.0-12.2)
[2024-11-17 13:00] LABS: Syphilis Nonreactive (Nonreactive)
[2024-11-20] VITALS (37 sets, daily range): BP systolic 120–157; BP diastolic 61–105; PULSE 68–91; RESP 12–98; TEMP 36.6–37.1; O2SAT 95–98; BMI 46.9
[2024-11-20 06:49] LABS: ROM Kit Lot # 58102387; ROM Swab Mixed By: YG; Rupture of Fetal Membranes Positive (Negative); Swb Mxed in Solvent 1 min? Yes
[2024-11-20] MEDS: Ampicillin Inj 2,000 MG in SODIUM CHLORIDE 0.9% (POP) 100 ML 200 MG IV (08:32)
[2024-11-20] MEDS: RINGERS LACTATED 1000 ML 1,000 ML 100 ML IV ×2 (08:33→13:21)
[2024-11-20] MEDS: AZITHROMYCIN INJ 500 MG in SODIUM CHLORIDE 0.9% 250 ML 250 ML 250 MG IV (11:10)
[2024-11-20] MEDS: Ampicillin Inj 1,000 MG in SODIUM CHLORIDE 0.9% (Popper) 50 ML 50 MG IV (13:01)
[2024-11-20] MEDS: FAMOTIDINE INJ 10 MG/ML VIAL 2 ML 20 MG IV (13:22)
[2024-11-20] MEDS: CITRIC ACID/SODIUM CITR 15 ML UDC (BICITRA) 30 ML PO (13:22)
[2024-11-20] MEDS: ceFAZolin/D5W 2 GM IV 2 GM/100 ML BAG IV (13:22)
--- NOTE | 2024-11-20 14:11 | ESHP_ITS ---
Addendum History & Physical Addendum Date of report being addended: 11/17/24 Narrative: Update for Day of Surgery Sabrina is a 29yo with SIUP at 37w1d presenting for scheduled PLTCS for suspected macrosomia in the setting of poorly controlled A2GDM (insulin) and pre-eclampsia withOUT severe features super-imposed on CHTN. MFM ultrasound on 11/15/24 showed EFW 4328g (9lb9oz). She was counseled by Dr. Lin regarding recommendation for PLTCS to avoid possibility of shoulder dystocia and its sequela, and she desired to proceed with . She presented this morning, earlier than her assigned time to arrive, because she felt she has been leaking fluid. AmniSure is positive, confirming PROM. status is reassuring and there is no regular ctx pattern. Ampicillin initiated for GBS unknown while awaiting availability of OR team to proceed with PLTCS. I met with Sabrina in the triage area and discussed the details of PLTCS at length. -Counseled/consented re: section. Discussed all r/b/a to include: bleeding (possible need for blood transfusion), infection (subcutaneous, deeper layers or uterine with possible need for prolonged admission or re-admission for IV antibiotics, I&D with wound packing, etc), injury to nearby structures such as bladder, bowel, ureters, blood vessels, nerves with possible need for re- operation, pain, injury to baby, hysterectomy, DVT/PE, . Answered all questions to patient and their support person's satisfaction. -IV abx ppx: ancef 3g IV x1 and azithromycin 500mg IV x1 -Nursing and anesthesia team aware of plan for section. Will proceed to OR when team is ready Ruthie Peralta MD
[2024-11-20] MEDS: ceFAZolin/D5W 1 GM IVPB 1 GM/50 ML BAG IV (14:32)
[2024-11-20] MEDS: LOPERAMIDE 2 MG CAPSULE 4 MG PO (16:44)
--- NOTE | 2024-11-20 16:49 | ESOP_ITS ---
Operative Note - CLINICAL NURSING COORDINATOR Procedure Date of procedure: 11/20/24 Procedure Performed: Primary Low Transverse Section Indication: Sabrina is a 29yo with SIUP at 37w1d presenting for scheduled section for macrosomia in the setting of A2GDM (insulin), pre-eclampsia withOUT severe features, and obesity (BMI >40). Pre-Op diagnosis: SIUP at 37w1d Macrosomia in the setting of A2GDM (insulin) Pre-eclampsia withOUT severe features Obesity (BMI >40) Post-Op diagnosis: SIUP at 37w1d Macrosomia in the setting of A2GDM (insulin) Pre-eclampsia withOUT severe features Obesity (BMI >40) Anesthesia type: Spinal Fluids: crystalloid Fluid amount (mL): 1,200 Urine output (mL): 200 Specimen: other (placenta and cord not sent to pathology) Estimated blood loss (ml): 900 Findings: Female in cephalic presentation, apgars 8/9, TOB 1530, weight [id number]. Clear fluid. Small focal area of placental adherence within the left side of the uterus, removed fully. Normal appearing uterus, ovaries and fallopian tubes. Complications: none Narrative: After obtaining informed consent, the patient was taken to the operating room. There was reassuring heart rate tracing prior. Spinal anesthesia was administered. A sosa catheter was placed and bilateral sequential compression devices were placed. She was then prepped and draped in the normal sterile fashion in the dorsal supine position with left lateral tilt. A timeout was performed to confirm patient name, date of , procedure and indication. The team was in agreement. Spinal anesthesia was found to be adequate using an Allis clamp. Anceph 3g IV x1 and Azithromycin 500mg IV x1 were given for prophylaxis. A Pfannenstiel skin incision was then made with the scalpel and carried through to the underlying layer of fascia. The fascia was incised in the midine and the incision was extended laterally with the Alvarez scissors. The superior and inferior aspects of the fascial incision were then grasped with the Little clamps, elevated and the underlying rectus muscles were dissected off bluntly and sharply. The peritoneum was entered digitally and the rectus muscles were then in the midline. The peritoneal incision was then extended superiorly and inferiorly with good visualization of the bladder. An Kobe retractor was placed and the vesicouterine peritoneum was then identified, grasped with the pickups, and entered sharply with the Metzenbaum scissors. The incision was extended laterally and the bladder flap created digitally. The lower uterine segment was scored in a transverse fashion with the scalpel. The uterus was then entered bluntly and the incision was extended with traction with clear amniotic fluid noted. The 's head was elevated to the level of the incision. Fundal pressure was applied. The head was delivered atraumatically in the OA position. The anterior shoulder, posterior shoulder and corpus were delivered without difficulty. The nose and mouth were suctioned with bulb suction and cord was clamped x2 and cut. Infant was vigorous. The infant was handed off to the awaiting nursing team. Cord blood obtained for typing. The placenta was then removed with uterine massage and cord traction. Focal area of adherence on the left side of the uterus, removed fully. The uterus was exteriorized and cleared of all clot and debris. The uterine incision was repaired with 0-vicryl suture in a running locking fashion. A second layer of O- monocryl was used to closed the hysterotomy incision in an imbricating fashion. The uterine incision was inspected and hemostasis was noted. In addition to standard IV pitocin, patient received TXA 1g IV x1, methergine 0.2mg IM x1 and hemabate 0.25mg IM x1 with good tone eventually achieved. The posterior cul-de-sac was suctioned and the uterus returned to the abdomen. The gutters were cleared of all clot. Kobe retractor was removed. The peritoneum was closed using a 3-0 vicryl suture in running fashion. The rectus muscles were inspected and small areas of oozing were cauterized. The fascia was reapproximated with 0-Vicryl suture in a running fashion. The subcutaneous tissue was then irrigated. Broderick's fascia was reapproximated using 3-0 vicryl suture in a running fashion. At that point OUTPATIENT PROGRAM COORDINATOR reapproximated the skin with 4-0 monocryl suture in running subcuticular fashion. The incision was cleaned with a wet lap and dried with a dry lap. Hooselgea-drxsuonrmwo-[id number] bandage was applied overlying the incision and activated according to contract administrator instructions. Fundus was firm at the U-1cm. Sponge, lap and needle counts were correct x2. Sweep of lower uterine segment was performed and only a modest amount of clot was obtained. Bimanual massage performed with firm fundus and lower uterine segment. Cytotec 800mcg OK placed. The procedure was without complications and the patient tolerated the procedure well. She was taken to recover further on Labor and Delivery, in stable condition. Surgical staff Operation Date: 11/20/24 13:45 Case Staff DIESEL ENGINE MECHANIC: Shahid Delvalle RNjewel sawyer: Swati Traylor Diagnosis Discharge Diagnosis (1) Pre-eclampsia, mild to moderate, third trimester: Status: Acute (2) Macrosomia affecting management of mother in third trimester: Status: Acute (3) Gestational diabetes: Status: Acute (4) Obesity affecting in third trimester: Status: Acute Problem List Completed Was Problem List Reviewed/Reconciled?: Yes (2) Macrosomia affecting management of mother in third trimester Qualifiers: Fetus number: single or unspecified fetus Qualified Code(s): O36.63X0 - Maternal care for excessive growth, third trimester, not applicable or unspecified (3) Gestational diabetes Qualifiers: Gestational diabetes mellitus control: insulin-controlled Trimester: third trimester Qualified Code(s): O24.414 - Gestational diabetes mellitus in , insulin controlled (4) Obesity affecting in third trimester Qualifiers: Obesity type affecting : severe obesity due to excess calories Qu alified Code(s): O99.213 - Obesity complicating , third trimester; E66.01 - Morbid (severe) obesity due to excess calories
[2024-11-20] MEDS: ACETAMINOPHEN IVPB 1,000 MG/100 ML VIAL 250 MG IV (17:41)
[2024-11-21] MEDS: OXYTOCIN in NS 20 units 20 UNIT/1,000 ML BAG 125 UNIT IV (00:38)
[2024-11-21] MEDS: ACETAMINOPHEN IVPB 1,000 MG/100 ML VIAL 250 MG IV ×2 (02:31→08:07)
[2024-11-21 03:58] VITALS: BP 124/71; PULSE 84; RESP 19; TEMP 36.4; O2SAT 95
--- NOTE | 2024-11-21 06:24 | PC.NURSE ---
0610 Breast pump, supplies, and lables taken into room. Education and instructions on use of pump and storage given; pt stated understanding and began pumping.
[2024-11-21 06:38] LABS: Basophils # (Auto) 0.0 Thou/mm3 (0.0-0.2); Basophils % (Auto) 0 % (0-2.5); Eosinophils # (Auto) 0.0 Thou/mm3 (0.0-0.5); Eosinophils % (Auto) 0 % (0-10); Hematocrit 32.5 % (36.0-46.0); Hemoglobin 11.3 g/dL (12.0-16.0); Immature Granulocytes Auto 0.04 Thou/mm3 (0.00-0.00); Lymphocytes # (Auto) 1.9 Thou/mm3 (1.0-4.8); Lymphocytes % (Auto) 16 % (10-50); Mean Corpuscular HGB Conc 34.8 g/dl (31.0-37.0); Mean Corpuscular Hemoglobin 29.7 pg (25.0-35.0); Mean Corpuscular Volume 85 fL (80-100); Monocytes # (Auto) 0.7 Thou/mm3 (0.0-0.8); Monocytes % (Auto) 6 % (0-12); Neutrophils # (Auto) 8.8 Thou/mm3 (1.8-7.7); Neutrophils % (Auto) 77 % (37-80); Nucleated Red Blood Cell # 0.00 Thou/mm3 (0.00-0.00); Nucleated Red Blood Cell % 0 /100 WBC (0); Platelet Count 159 Thou/mm3 (140-440); RDW Standard Deviation 45.0 fL (36.4-46.3); Red Blood Count 3.81 Miln/mm3 (4.00-5.20); White Blood Count 11.5 Thou/mm3 (3.6-11.0)
[2024-11-21 08:05] VITALS: BP 113/84; PULSE 86; RESP 19; TEMP 36.8; O2SAT 98
[2024-11-21] MEDS: PRENATAL VITAMIN/FE FUM/FA TABLET 1 TAB PO (08:06)
[2024-11-21] MEDS: DOCUSATE SOD 100 MG CAPSULE PO (08:06)
--- NOTE | 2024-11-21 08:17 | ESPR_ITS ---
Subjective Subjective Interval history: Patient doing well overall. Pain is controlled with IV tylenol and prn oxycodone. She is ambulating no lightheadedness/dizziness. Leija recently removed, awaiting due to void. Tolerated jello and saltine crackers- was nauseous last night. Not yet passing gas. No fevers/chills, no CP/SOB. Visited baby in NICU early this morning and was pretty tired after. Exam Vital Signs Temp Pulse Resp BP Pulse Ox O2 Del Method 97.6 F 84 19 124/71 95 Room Air 11/21/24 03:58 11/21/24 03:58 11/21/24 03:58 11/21/24 03:58 11/21/24 03:58 11/21/24 03:58 Narrative Exam General: well developed, well nourished, no acute distress, conversant Cardiac: normal heart rate Lungs: breathing without distress Abdomen: soft, post-gravid, obese, non-tender, no rebound or guarding, pfannenstiel incision covered by dry/clean/intact prineo bandage. Incision well reapproximated. No erythema, drainage or induration. Fundus firm at u-2cm. Extremities: no pain with palpation of calves, trace edema of BLE Objective Labs 11/21/24 05:47 Labs: Laboratory Results - last 24 hr 11/21/24 05:47 WBC 11.5 H D RBC 3.81 L Hgb 11.3 L Hct 32.5 L MCV 85 MCH 29.7 MCHC 34.8 RDW Std Deviation 45.0 Plt Count 159 Neut % (Auto) 77 Lymph % (Auto) 16 [place] % (Auto) 6 Eos % (Auto) 0 Baso % (Auto) 0 Neut # (Auto) 8.8 H Lymph # (Auto) 1.9 [place] # (Auto) 0.7 Eos # (Auto) 0.0 Baso # (Auto) 0.0 Immature Gran # (Auto) 0.04 H Absolute Nucleated RBC 0.00 Immature Gran % 0 Nucleated RBC % 0 Assessment & Plan Problem List (1) Delivery by section: Status: Acute Assessment and plan: Sabrina is a 29yo [id number] s/p uncomplicated scheduled PLTCS for macrosomia at 37w1d in the setting of A2GDM (insulin), pre-eclampsia withOUT severe features, and obesity (BMI >40). She is doing well on POD 1. Vitals wnl, benign exam. Hemodynamically stable with no evidence of infection. Appropriate change in H/H from 13 to 11.3. Plan: -Continue routine /post-op care -Awaiting due to void -Regular diet -IV tylenol x24hr then switch to oral tylenol (scheduled), oxycodone 5mg IR PO Q4hr prn pain (patient has allergy to motrin) -Lovenox 40mg SQ Q12hr -Encourage ambulation and use of IS -Anticipate discharge home tomorrow if meeting all milestones (2) Pre-eclampsia, mild to moderate, third trimester: Status: Acute (3) Macrosomia affecting management of mother in third trimester: Status: Acute (4) Gestational diabetes: Status: Acute (5) Obesity affecting in third trimester: Status: Acute Time Spent With Patient Time: Total time spent is greater than 50% in coordination of care (as documented) at patient's floor/unit and/or counseling patient:
[2024-11-21] MEDS: ENOXAPARIN SOD INJ 40 MG/0.4 ML SYRINGE SC ×2 (09:30→20:32)
[2024-11-21 12:10] VITALS: BP 130/82; PULSE 84; RESP 18; TEMP 36.8; O2SAT 99
--- NOTE | 2024-11-21 12:21 | XR_ITS ---
Examination: Duplex scan of the lower extremity, unilateral right complete Date and time of exam: November 21, 2024 1303 hours INDICATIONS: Right calf swelling and pain today, history gestational diabetes, history preeclampsia of Technique: Duplex scan of the extremity veins using B-mode/grayscale imaging and Doppler spectral analysis and color flow Attention is directed to internal echogenicity, compression and augmentation involving these veins, color flow assessment, spectral analysis Findings: Major deep venous structures in the extremity demonstrate normal course and caliber. There is no evidence of deep vein thrombosis. Normal color flow and spectral analysis Impression: Negative for DVT..
--- NOTE | 2024-11-21 12:22 | PD.EVENT ---
Documentation for date of: 11/21/24 Event Note Event Note: Notified by RN that patient endorses some right calf discomfort when she bends her leg. No overt pain. No discoloration. No swelling in relation to left calf. Patient is high risk for VTE given BMI 46.9. Prophylactic Lovenox was started this morning. Doppler ultrasound of right lower extremity ordered to rule out VTE. Ruthie Peralta MD
[2024-11-21] MEDS: ACETAMINOPHEN 500 MG TABLET 1000 MG PO ×2 (15:46→23:57)
[2024-11-21 15:50] VITALS: BP 133/83; PULSE 86; RESP 17; TEMP 37; O2SAT 97
[2024-11-21 20:24] VITALS: BP 127/82; PULSE 89; RESP 19; TEMP 36.8; O2SAT 99
[2024-11-21] MEDS: oxyCODONE HCL 5 MG IR TAB PO (20:32)
[2024-11-22] VITALS: BP 138/79; PULSE 95; RESP 18; TEMP 37.2; O2SAT 100
[2024-11-22] MEDS: ACETAMINOPHEN 500 MG TABLET 1000 MG PO ×3 (06:30→18:16)
[2024-11-22 08:50] VITALS: BP 126/80; PULSE 98; RESP 18; TEMP 37.1; O2SAT 99
[2024-11-22] MEDS: oxyCODONE HCL 5 MG IR TAB PO (08:59)
[2024-11-22] MEDS: ENOXAPARIN SOD INJ 40 MG/0.4 ML SYRINGE SC ×2 (08:59→22:01)
[2024-11-22] MEDS: PRENATAL VITAMIN/FE FUM/FA TABLET 1 TAB PO (08:59)
[2024-11-22] MEDS: DOCUSATE SOD 100 MG CAPSULE PO (08:59)
--- NOTE | 2024-11-22 09:01 | PD.LDPPPRG ---
Subjective Subjective Interval history: Patient doing well overall. Pain is somewhat controlled- she is taking tylenol scheduled with prn oxycodone. She is ambulating no lightheadedness/dizziness. Voiding spontaneously since sosa was removed, no issues. Tolerating regular diet without nausea/vomiting. No fevers/chills, no CP/SOB. Has gas pains, but she hasn't passed gas yet. Exam Vital Signs Temp Pulse Resp BP Pulse Ox O2 Del Method 98.9 F 95 18 138/79 H 100 Room Air 11/22/24 00:00 11/22/24 00:00 11/22/24 00:00 11/22/24 00:00 11/22/24 00:00 11/22/24 00:00 Narrative Exam General: well developed, well nourished, no acute distress, conversant Cardiac: normal heart rate Lungs: breathing without distress Abdomen: soft, post-gravid, non-tender, no rebound or guarding, obese, pfannenstiel incision covered by dry/clean/intact prineo bandage. Incision well reapproximated. No erythema, drainage or induration. Fundus firm at u-2cm. Extremities: no pain with palpation of calves, trace edema of BLE Objective Labs 11/21/24 05:47 Assessment & Plan Problem List (1) Delivery by section: Status: Acute Assessment and plan: Sabrina is a 29yo [id number] s/p uncomplicated scheduled PLTCS for macrosomia at 37w1d in the setting of A2GDM (insulin), pre-eclampsia withOUT severe features, and obesity (BMI >40). She is doing well on POD 2. Vitals wnl, benign exam. Hemodynamically stable with no evidence of infection. Appropriate change in H/H from 13 to 11.3. RLE doppler u/s done on 11/21 to rule out DVT as patient had some calf discomfort- testing was negative. Still working on pain control, hasn't yet passed gas and baby is in NICU. Plan: -Continue routine /post-op care -Regular diet -Oral tylenol (scheduled), oxycodone 5mg IR PO Q4hr prn pain (patient has allergy to motrin) -Lovenox 40mg SQ Q12hr -Encourage ambulation and use of IS -Anticipate discharge home tomorrow if meeting all milestones (2) Pre-eclampsia, mild to moderate, third trimester: Status: Acute (3) Macrosomia affecting management of mother in third trimester: Status: Acute (4) Gestational diabetes: Status: Acute (5) Obesity affecting in third trimester: Status: Acute Time Spent With Patient Time: Total time spent is greater than 50% in coordination of care (as documented) at patient's floor/unit and/or counseling patient:
[2024-11-22] MEDS: SIMETHICONE 80 MG CHEW PO (12:32)
[2024-11-22 15:52] VITALS: BP 122/70; PULSE 74; RESP 16; TEMP 37.1; O2SAT 95
[2024-11-22 19:57] VITALS: BP 134/72; PULSE 77; RESP 19; TEMP 36.4; O2SAT 99
[2024-11-23] MEDS: ACETAMINOPHEN 500 MG TABLET 1000 MG PO ×2 (00:33→06:36)
[2024-11-23 04:28] VITALS: BP 125/82; PULSE 73; RESP 18; TEMP 36.8; O2SAT 100
[2024-11-23 07:03] VITALS: BP 136/85; PULSE 70; RESP 18; TEMP 36.8; O2SAT 97
--- NOTE | 2024-11-23 07:48 | ESDS_ITS ---
DS: Providers Provider Date of admission: 11/20/24 07:09 Primary care physician: Physician No Primary/Family Admitting Provider: Ruthie Peralta MD Attending Provider on Admission: Ruthie Peralta MD Consults: 11/20/24 16:43 Referral Routine Comment: Attending Provider on DC: Ruthie Peralta MD Discharging Provider: Ruthie Peralta MD DS: Diagnosis Discharge Diagnosis (1) Delivery by section: Status: Acute (2) Obesity affecting in third trimester: Status: Acute (3) Macrosomia affecting management of mother in third trimester: Status: Acute (4) Pre-eclampsia, mild to moderate, third trimester: Status: Acute (5) Gestational diabetes: Status: Acute Problem List Completed Was Problem List Reviewed/Reconciled?: Yes Summary/Hosp Course Brief History: Sabrina is a 29yo [id number] s/p uncomplicated scheduled PLTCS for macrosomia at 37w1d in the setting of A2GDM (insulin), pre-eclampsia withOUT severe features, and obesity (BMI >40). She is doing well on POD 3. Normotensive to mild range bp's, afebrile, benign exam. Hemodynamically stable with no evidence of infection. Appropriate change in H/H from 13 to 11.3. No s/sx of worsening pre-eclampsia. RLE doppler u/s done on 11/21 to rule out DVT as patient had some calf discomfort- testing was negative. She has had an uncomplicated post-operative course, meeting all milestones. Feels much improved from yesterday now that she is passing gas. Baby is in the NICU. She is ambulating without lightheadedness, tolerating regular diet no n/v, spontaneously voiding without issue. She has no chest pain or shortness of breath. No fevers or chills. Pain well controlled. Vitals normal, benign exam. Hemodynamically stable with no evidence of infection. Post-op Hgb 11.3 from 13. Peripartum Data Delivery Method: Low Transverse Episiotomy Description: None Procedures: Procedures Operation Date: 11/20/24 13:45 Actual Procedure Side Surgeon p in OB Ruthie Peralta MD Status at Discharge Functional status at discharge: independent ambulation Overall status at discharge: patient is back to baseline Time Spent with Patient Time attestation: Total time spent providing and/or coordinating discharge services: Exam Vital Signs Temp Pulse Resp BP Pulse Ox O2 Del Method 98.2 F 70 18 136/85 H 97 Room Air 11/23/24 07:03 11/23/24 07:03 11/23/24 07:03 11/23/24 07:03 11/23/24 07:03 11/23/24 07:03 Narrative Exam General: well developed, well nourished, no acute distress, conversant Cardiac: normal heart rate Lungs: breathing without distress Abdomen: soft, post-gravid, obese, non-tender, no rebound or guarding, pfannenstiel incision covered by dry/clean/intact prineo bandage. Incision well reapproximated. No erythema, drainage or induration. Fundus firm at u-2cm. Extremities: no pain with palpation of calves, 1+ edema of BLE Discharge Plan Plan Patient Disposition: HOME (Self Care) Patient condition on transfer: Stable Prescriptions/Referrals Prescriptions/Med Rec: New acetaminophen [Tylenol Extra Strength] 500 mg Tablet 1,000 mg PO Q6HR PRN (Reason: Patient rated pain of 3) 10 Days Qty: 30 0RF docusate sodium 100 mg Capsule 100 mg PO QDAY 10 Days Qty: 10 0RF oxycodone 5 mg Tablet 5 mg PO Q4HR MDD 6 tablets PRN (Reason: Pain) 10 Days Qty: 20 0RF Continued vitamin #45-iron-FA 28 mg iron- 1 mg tablet,chewable 1 tab PO QDAY Discontinued Humulin N NPH U-100 Insulin 100 unit/mL suspension 10 unit SUBCUT .bedtime Patient Comments: Inject 40 unit subcutaneously as directed as directed 40 units sc before breakfast and 20 sc units at bedtime. Referrals: No Primary/Family,Physician [Primary Care Provider] - Patient/Caregiver Discharge Instructions Discharge Activity: activity as tolerated and other Other Discharge Activity Instructions:: vaginal rest and no heavy lifting more than 10 pounds for 6 [address] while taking narcotic. keep incision clean and dry, do not submerge. Other Discharge Diet Instructions: regular diet Education Materials: , C Section Dc, Getting Started, Understanding Preeclampsia Print Language: Lebanese Activity Restrictions/Additional Instructions: follow up with Dr. Lin in 1 to 2 weeks for incision check Stand Alone Forms: Sabrina Lucas Info., Patient Portal Info Letter Discharge Order Discharge Orders: Discharge (Routine); Ordered 11/23/24 Ordered By: Ruthie Peralta Planned Discharge Date 11/23/24 (2) Obesity affecting in third trimester Qualifiers: Obesity type affecting : severe obesity due to excess calories Qualified Code(s): O99.213 - Obesity complicating , third trimester; E66.01 - Morbid (severe) obesity due to excess calories (3) Macrosomia affecting management of mother in third trimester Qualifiers: Fetus number: single or unspecified fetus Qualified Code(s): O36.63X0 - Maternal care for excessive growth, third trimester, not applicable or unspecified (5) Gestational diabetes Qualifiers: Gestational diabetes mellitus control: insulin-controlled Trimester: third trimester Qualified Code(s): O24.414 - Gestational diabetes mellitus in , insulin controlled
[2024-11-23] MEDS: PRENATAL VITAMIN/FE FUM/FA TABLET 1 TAB PO (08:13)
[2024-11-23] MEDS: DOCUSATE SOD 100 MG CAPSULE PO (08:14)
[2024-11-23] MEDS: ENOXAPARIN SOD INJ 40 MG/0.4 ML SYRINGE SC (08:14)
== END 2024-11-23 09:30 | disposition home or self-care (01) | DRG 788 ==
LOC: S4SX 14:55 → S4NX 15:04
PROVIDERS: Specialist; Admitting Provider Obstetrics & Gynecology; Visit Provider Obstetrics & Gynecology
PROC: 10D00Z1 Extraction of Products of Conception, Low, Open Approach (ICD-10-PCS; CPT 59514; principal; 2024-11-20 14:30)
DX: O36.63X0 Maternal care for excessive fetal growth, third trimester, not applicable or unspecified (principal); O24.424 Gestational diabetes mellitus in childbirth, insulin controlled; O14.04 Mild to moderate pre-eclampsia, complicating childbirth; O99.214 Obesity complicating childbirth; E66.01 Morbid (severe) obesity due to excess calories; Z37.0 Single live birth; Z3A.37 37 weeks gestation of pregnancy; Z88.6 Allergy status to analgesic agent
CPT/HCPCS: 36415; 80053; 84112; 85025; 85610; 85730; 86780; 86850; 86900; 86901; 90707; 93971; A4314; A4649; J0131; J0290; J0456; J0689; J1650; J2210; J2250; J2274; J2371; J2590; J3490; J7050; J7120; S0191; A9270; J2270

== ENCOUNTER → 2024-11-29 | Outpatient (CLI) | payer BC, SELFPAY | END | disposition home or self-care (01) | LOC: SLDO 15:14 | PROVIDERS: Referring Provider Specialist; Visit Provider Specialist | DX: Z48.89 Encounter for other specified surgical aftercare (principal) | CPT/HCPCS: 87077; 87086; 87186 ==

== ENCOUNTER → 2025-01-03 | Outpatient (CLI) | payer BC, SELFPAY | END | disposition home or self-care (01) | LOC: SLDO 14:33 | PROVIDERS: Referring Provider Specialist; Visit Provider Specialist | DX: N39.0 Urinary tract infection, site not specified (principal) | CPT/HCPCS: 87086; 87186 ==

== ENCOUNTER → 2025-01-04 | Outpatient (CLI) | payer BC, SELFPAY ==
[2025-01-04 13:45] LABS: Basophils # (Auto) 0.0 Thou/mm3 (0.0-0.2); Basophils % (Auto) 1 % (0-2.5); Eosinophils # (Auto) 0.2 Thou/mm3 (0.0-0.5); Eosinophils % (Auto) 3 % (0-10); Hematocrit 40.3 % (36.0-46.0); Hemoglobin 13.6 g/dL (12.0-16.0); Immature Granulocytes Auto 0.01 Thou/mm3 (0.00-0.00); Lymphocytes # (Auto) 2.2 Thou/mm3 (1.0-4.8); Lymphocytes % (Auto) 37 % (10-50); Mean Corpuscular HGB Conc 33.7 g/dl (31.0-37.0); Mean Corpuscular Hemoglobin 27.9 pg (25.0-35.0); Mean Corpuscular Volume 83 fL (80-100); Monocytes # (Auto) 0.3 Thou/mm3 (0.0-0.8); Monocytes % (Auto) 5 % (0-12); Neutrophils # (Auto) 3.2 Thou/mm3 (1.8-7.7); Neutrophils % (Auto) 53 % (37-80); Nucleated Red Blood Cell # 0.00 Thou/mm3 (0.00-0.00); Nucleated Red Blood Cell % 0 /100 WBC (0); Platelet Count 294 Thou/mm3 (140-440); RDW Standard Deviation 37.7 fL (36.4-46.3); Red Blood Count 4.87 Miln/mm3 (4.00-5.20); White Blood Count 6.0 Thou/mm3 (3.6-11.0)
[2025-01-04 13:59] LABS: Glucose Estimated Average 117 mg/dL (80-131); Hemoglobin A1C 5.7 % Hgb (4.8-6.0)
[2025-01-04 14:05] LABS: T4 (Thyroxine) 10.5 mcg/dL (4.5-10.9)
[2025-01-04 14:06] LABS: Vitamin D 25 Hydroxy Total 30.5 ng/mL (7.3-40.2)
[2025-01-04 14:09] LABS: Alanine Aminotransferase 13 U/L (10-49); Albumin, Serum 4.5 gm/dL (3.5-5.0); Albumin/Globulin Ratio 1.7 (1.2-2.2); Alkaline Phosphatase 83 U/L (46-116); Anion Gap 12 (7-16); Aspartate Amino Transferase 17 U/L (0-34); BUN/Creatinine Ratio 13 Ratio (12-20); Bilirubin,Total 0.5 mg/dL (0.3-1.2); Blood Urea Nitrogen 9 mg/dL (9-23); Calcium 9.4 mg/dL (8.3-10.6); Calcium (Corrected) 9.4 mg/dL (8.5-10.1); Carbon Dioxide 25.4 mMol/L (20.0-31.0); Chloride 105 mMol/L (98-107); Creatinine (Component) 0.7 mg/dL (0.6-1.3); Free T4 (Free Thyroxine) 1.20 ng/dL (0.89-1.76); Globulin 2.6 gm/dL (2.3-3.5); Glucose 94 mg/dL (74-106); Osmolality,Calculated 281 (275-295); Potassium 4.1 mMol/L (3.4-5.1); Sodium 142 mMol/L (136-145); Thyroid Stimulating Hormone 1.17 uIU/mL (0.55-4.78); Total Protein 7.1 gm/dL (5.7-8.2); eGFR > 60 See Note
[2025-01-09 06:27] LABS: T3,Total* 122 ng/dL (76-181)
== END | disposition home or self-care (01) ==
LOC: COPL 12:21
PROVIDERS: PCP Nurse Practitioner Family; Referring Provider Internal Medicine; Visit Provider Specialist
DX: R73.09 Other abnormal glucose (principal); E06.3 Autoimmune thyroiditis; Z34.90 Encounter for supervision of normal pregnancy, unspecified, unspecified trimester; Z86.32 Personal history of gestational diabetes
CPT/HCPCS: 36415; 80053; 82306; 83036; 84436; 84439; 84443; 84480; 85025

== ENCOUNTER → 2025-01-15 | Outpatient (BNVA) | payer BC, SELFPAY | END | disposition home or self-care (01) | PROVIDERS: PCP Nurse Practitioner Family; Referring Provider Nurse Practitioner Family; Visit Provider Urology Female Pelvic Medicine and Reconstructive Surgery | DX: N39.3 Stress incontinence (female) (male) (principal); N39.0 Urinary tract infection, site not specified | CPT/HCPCS: 99212; G0463 ==

== ENCOUNTER 2025-03-10 22:39 | Emergency (ER) | payer BC, SELFPAY ==
[2025-03-10 22:41] VITALS: BMI 40.3
[2025-03-10 23:05] VITALS: BP 136/84; PULSE 86; RESP 18; TEMP 36.8; O2SAT 97
--- NOTE | 2025-03-10 23:09 | XR_ITS ---
Examination: Transvaginal ultrasound of the pelvis, complete Technique: Transvaginal sonographic images pelvis performed using johnson scale imaging Exam date and time: March 10, 2025, 11:28 p.m. INDICATIONS: Pelvic pain and bleeding after insertion of intrauterine device 1 month ago. FINDINGS: Uterus 8.2 cm satisfactory position intrauterine device Ovaries obscured by bowel gas Endometrial stripe 13 mm IMPRESSION: Intrauterine device satisfactory position.
[2025-03-10 23:36] LABS: Collection Type, Urine Clean Catch
[2025-03-10 23:40] LABS: Bilirubin,Urine Negative (Negative); Blood,Urine Negative (Negative); Clarity,Urine Clear (Clear/Hazy); Color,Urine Colorless (Lt Yel-Yel); Glucose, Urine Negative (Negative); Ketones,Urine Negative (Negative); Leukocyte Esterase,Urine Positive (Negative); Nitrite,Urine Negative (Negative); PH,Urine 7.0 (5.0-7.0); Protein,Urine Negative (Neg - Trace); RBC,Urine 1 /hpf (0-3); Specific Gravity,Urine 1.010 (1.001-1.035); Squamous Epithelial Cell,Urine < 1 /hpf (0-5); Urobilinogen,Urine Negative mg/dL (0.0-1.0); WBC,Urine 4 /hpf (0-5)
[2025-03-10 23:41] LABS: HCG Qualitative,Urine Negative
[2025-03-10] MEDS: HYDROcodone/APAP 5/325 TABLET 1 TAB PO (23:51)
[2025-03-10 23:57] LABS: Basophils # (Auto) 0.0 Thou/mm3 (0.0-0.2); Basophils % (Auto) 0 % (0-2.5); Eosinophils # (Auto) 0.2 Thou/mm3 (0.0-0.5); Eosinophils % (Auto) 2 % (0-10); Hematocrit 36.4 % (36.0-46.0); Hemoglobin 12.6 g/dL (12.0-16.0); Immature Granulocytes Auto 0.03 Thou/mm3 (0.00-0.00); Lymphocytes # (Auto) 2.5 Thou/mm3 (1.0-4.8); Lymphocytes % (Auto) 22 % (10-50); Mean Corpuscular HGB Conc 34.6 g/dl (31.0-37.0); Mean Corpuscular Hemoglobin 28.3 pg (25.0-35.0); Mean Corpuscular Volume 82 fL (80-100); Monocytes # (Auto) 0.7 Thou/mm3 (0.0-0.8); Monocytes % (Auto) 6 % (0-12); Neutrophils # (Auto) 7.9 Thou/mm3 (1.8-7.7); Neutrophils % (Auto) 70 % (37-80); Nucleated Red Blood Cell # 0.00 Thou/mm3 (0.00-0.00); Nucleated Red Blood Cell % 0 /100 WBC (0); Platelet Count 272 Thou/mm3 (140-440); RDW Standard Deviation 38.3 fL (36.4-46.3); Red Blood Count 4.46 Miln/mm3 (4.00-5.20); White Blood Count 11.4 Thou/mm3 (3.6-11.0)
[2025-03-11 00:18] LABS: Alanine Aminotransferase 11 U/L (10-49); Albumin, Serum 4.3 gm/dL (3.5-5.0); Albumin/Globulin Ratio 1.5 (1.2-2.2); Alkaline Phosphatase 83 U/L (46-116); Anion Gap 8 (7-16); Aspartate Amino Transferase 14 U/L (0-34); BUN/Creatinine Ratio 13 Ratio (12-20); Bilirubin,Total 0.2 mg/dL (0.3-1.2); Blood Urea Nitrogen 9 mg/dL (9-23); Calcium 9.2 mg/dL (8.3-10.6); Calcium (Corrected) 9.2 mg/dL (8.5-10.1); Carbon Dioxide 28.1 mMol/L (20.0-31.0); Chloride 106 mMol/L (98-107); Creatinine (Component) 0.7 mg/dL (0.6-1.3); Estimated Creatinine Clearance 148.8 mL/min (>60); Globulin 2.9 gm/dL (2.3-3.5); Glucose 119 mg/dL (74-106); Lipase 28 U/L (12-53); Osmolality,Calculated 282 (275-295); Potassium 4.1 mMol/L (3.4-5.1); Sodium 142 mMol/L (136-145); Total Protein 7.2 gm/dL (5.7-8.2); eGFR > 60 See Note
--- NOTE | 2025-03-11 01:43 | PRELIM_ITS ---
Pelvic ultrasound (transvaginal). March 10, 2025 2328 hours Clinical history: Pelvic pain. Technique: Real-time, grayscale, transvaginal pelvic ultrasound was performed. Comparison: None. Findings: The uterus is anteverted and normal in size measuring 8.3 x 4 x 5.2 cm. The endometrium measures 1.3 cm and demonstrates intrauterine contraceptive device in satisfactory position. The cervix measures 2.7 cm in length. There is minimal fluid in the lower endometrial cavity and endocervical canal. Both ovaries are not visualized. There is no free fluid in the cul-de-sac to the extent visualized. Impression: 1. Intrauterine contraceptive device in satisfactory position 2. Minimal fluid in the lower endometrial cavity and endocervical canal, of indeterminate etiology. 3. Other findings as described above. Suggest clinical correlation and follow up accordingly. Report Electronically Signed By: Manolo Birmingham 03/11/2025 1:42:49 AM [EST]
[2025-03-11 02:04] VITALS: BP 149/87; PULSE 83; RESP 18; TEMP 36.8; O2SAT 96
--- NOTE | 2025-03-11 02:12 | EDNOTE_ITS ---
ED Female Urogenital RME/HPI General Chief complaint: Abdominal Pain Stated complaint: PELVIC PAIN, PAIN WITH URINATION Time Seen by Provider: 03/10/25 22:57 Arrival date/time: 03/10/25 22:39 This is a case of 29-year-old female who came in in the emergency room due to persistent pelvic pain and painful urination patient states that she gave 3 months ago with no complication and had IUD placement 4 weeks prior to arrival in the emergency room since then patient is having on and off pelvic pain and heavy schedule to 6 remove the IUD on March 15 due to worsening of the symptoms this patient decided to sought consult here in the emergency room patient denies any fever chills denies any abdominal pain denies any vaginal bleeding vaginal discharge vaginal spotting Limitations: no limitations Related Data Home Medications ?Medication ?Instructions ?Recorded ?Confirmed vitamins no.45-iron-FA 28 1 tab PO QDAY 10/1701/15/25 mg iron-1 mg chewable tablet Previous Rx's ?Medication ?Instructions ?Recorded cephalexin 500 mg capsule 500 mg PO QID #40 caps 03/11 hydrocodone 5 mg-acetaminophen 325 1 tab PO Q6H PRN pa in #8 tabs 03/11/25 mg tablet ondansetron 4 mg disintegrating 4 mg PO Q8H #20 tabs 1 05/12/24 tablet Allergies Allergy/AdvReac Type Severity Reaction Status Date / Time clomiphene (From Clomid) Allergy Mild Blurry Verified 03/10/25 22:40 Vision walnut Allergy Unknown SWELLING Verified 03/10/25 22:40 TO MOUTH ibuprofen Allergy Verified 03/10/25 22:40 Review of Systems Review of Systems Systems Reviewed: All systems reviewed, normal except as documented Constitutional Constitutional: Reports system reviewed and no additional complaints, except as documented and Reports as per HPI Cardiovascular Cardiovascular: Reports system reviewed and no additional complaints, except as documented and Reports as per HPI Respiratory Respiratory: Reports system reviewed and no additional complaints, except as documented and Reports as per HPI Gastrointestinal Gastrointestinal: Reports system reviewed and no additional complaints, except as documented and Reports as per HPI Genitourinary Genitourinary: Reports system reviewed and no additional complaints, except as documented and Reports as per HPI Neurologic Neurologic: Reports system reviewed and no additional complaints, except as documented and Reports as per HPI Past Medical History Past Medical History NEUROLOGIC: Negative Neurological Disorders or Seizures CARDIAC: Positive Cardiac Disorders and Hypertension (pre e); Negative Congestive Heart Failure RESPIRATORY: Positive Asthma; Negative Chronic Obstructive Pulmonary Disease (COPD) GENITOURINARY: Negative Genitourinary Disorders or Renal Disease MUSCULOSKELETAL: Negative Musculoskeletal Disorders ENDOCRINE: Positive Endocrine Disorders, Diabetes Mellitus Type 2 (pre diabetic) and Hyperthyroidism ( CHILD); Negative Diabetes Mellitus Type 1 HEMATOLOGIC: Negative Blood Disorders PSYCHO/SOCIAL: Positive Depression and Anxiety OTHER HISTORY: Negative Autoimmune Disease, Blood Transfusions, Blood Transfusion Reaction or Anesthesia Reactions Family History FAMILY HISTORY: Positive Family Cancer (mother thyroid cancer, liver cancer); Negative Family Psychiatric Problems, Family Respiratory Disorders, Family Cardiac Disorders, Family Gastrointestinal Problems, Family Surgery or Family Anesthesia Reaction Surgical History SURGICAL: Positive Tonsillectomy; Negative Section Social History SMOKING STATUS: Never smoker ED Exam General Limitations: Present no limitations General appearance: Present alert, in no apparent distress and other (Patient is awake alert oriented not in distress nontoxic looking well-hydrated well-nourished) Head Head exam: Present atraumatic, normocephalic and normal inspection Eye Eye exam: Present normal appearance, PERRL and EOMI ENT ENT exam: Present normal exam, normal oropharynx and mucous membranes moist Neck Neck exam: Present normal inspection, full ROM and trachea midline; Absent tenderness, meningismus, lymphadenopathy or thyromegaly Chest Chest inspection: Present normal inspection and symmetric chest wall rise; Absent tenderness Respiratory Respiratory exam: Present normal lung sounds bilaterally; Absent respiratory distress, wheezes, stridor, accessory muscle use or prolonged expiratory phase Cardiovascular Cardiovascular exam: Present regular rate, normal rhythm and normal heart sounds; Absent bradycardia, tachycardia, irregular rhythm, systolic murmur or diastolic murmur Abdominal Exam Abdominal exam: Present soft, tenderness (Mild tenderness on pelvic area) and normal bowel sounds; Absent distention, guarding, rebound, rigidity, diminished bowel sounds, hyperactive bowel sounds, hypoactive bowel sounds, organomegaly, psoas sign, obturator sign, Butler's sign, Rovsing's sign, tenderness at McBurney's Point, ascites or hernia Extremities Exam Extremities exam: Present normal inspection and full ROM Back Exam Back exam: Present normal inspection and full ROM Neurological Exam Neurological exam: Present alert, oriented X3, CN II-XII intact, normal gait and reflexes normal; Absent motor sensory deficit Psychiatric Psychiatric exam: Present normal affect and normal mood Skin Skin exam: Present warm, dry, intact, normal color and other (Excellent skin turgor) Course Quality Measures none Orders Category Date Time Status US transvaginal Stat Exams 03/10/25 23:09 Taken CBC Stat Lab 03/10/25 23:50 Completed Comprehensive Metabolic Panel Stat Lab 03/10/25 23:50 Completed HCG Qualitative,Urine Stat Lab 03/10/25 23:21 Completed Lipase Stat Lab 03/10/25 23:50 Completed Urinalysis Stat Lab 03/10/25 23:21 Completed HYDROcodone*/APAP 5/325 [[place] 5/325] Med 03/10/25 23:41 Discontinued 1 tab PO X1 ONE cefTRIAXone [Rocephin] 1,000 mg Med 03/11/25 02:08 Discontinued Lidocaine 1% Pf Vial 5ml [Xylocaine 1% 5 ml] 2.1 ml IM X1 Vital Signs Vital signs: Vital Signs Temperature 98.3 F 03/10/25 23:05 Pulse Rate 86 03/10/25 23:05 Respiratory Rate 18 03/10/25 23:05 Blood Pressure 136/84 H 03/10/25 23:05 Pulse Oximetry (%) 97 03/10/25 23:05 Oxygen Delivery Method Room Air 03/10/25 23:05 Oxygen saturation is 97% in room air Urogenital - Female MDM Narrative MDM Narrative:: This is a case of 29-year-old female who came in in the emergency room due to persistent pelvic pain and painful urination patient states that she gave 3 months ago with no complication and had IUD placement 4 weeks prior to arrival in the emergency room since then patient is having on and off pelvic pain and heavy schedule to 6 remove the IUD on March 15 due to worsening of the symptoms this patient decided to sought consult here in the emergency room patient denies any fever chills denies any abdominal pain denies any vaginal bleeding vaginal discharge vaginal spotting patient is awake alert oriented not in distress nontoxic looking well-hydrated well-nourished excellent skin turgor noted mild tenderness on the pelvic area but no guarding no rebound no rigidity negative psoas negative straight or negative Rovsing's negative McBurney's nega tive Butler sign negative CVA tenderness bladder is not distended not tender the rest of the physical examination and neurological exam is normal and unremarkable blood test showed mild leukocytosis at 11,000 platelet no anemia kidney and liver function is normal electrolytes were normal lipase is normal urinalysis shows WBC in the urine suggestive of urinary tract infection ultrasound showed normal and unremarkable IUD is in place after giving [place] patient pain was improved and resolved patient was advised to follow-up with PCP for reevaluation she also advised to call the OB regional engineer on Wednesday for earlier appointment and removal of IUD for any worsening symptoms and emergent concern return precaution in the ER is advised patient was given ceftriaxone IM here in for urinary tract infection and was discharged with cephalexin [place] as needed for severe pain and Zofran for nausea vomiting Patient was discharged with comfortable condition walking with stable gait. Patient verbalized no further complains explained diagnosis and answered patient question. Patient is comfortable with the proposed management plan including the need to follow up with his/her primary care physician and any specialist if applicable Discussed patient for any urgent condition or worsening sx, He/She needed to go to emergency room immediately or call 911. Patient acknowledge the responsibility to follow up as instructed and to monitor her/his symptoms. For any persistence of the symptoms for more than 3-5 days return precaution advised. Discussed the result of the test and was given printed discharge instruction Patient data External records reviewed:: [facility] previous records Clinical information provided by:: patient Social determinants that could affect healthcare access:: none Patient has the following chronic illnesses:: None How is presenting disease/condition affected by chronic disease/condition?: no chronic disease Evaluation data The following diagnostics were reviewed and interpreted by me:: lab results and radiology exam(s) Lab and/or radiology exams considered but not ordered:: reviewd Interpretation Summary: reviewed Medications / Prescriptions Medications or Prescriptions considered but not ordered:: given Medication administrations:: Medication Administration History Discontinued Medications Hydrocodone Bitart/Acetaminophen (Hydrocodone/[place] 5/325 Tablet) 1 tab PO X1 ONE Stop: 03/10/25 23:42 Last Admin: 03/10/25 23:51 Dose: 1 tab Documented By: BD Ceftriaxone Sodium 1,000 mg/ (Lidocaine HCl 2.1 ml) 0 mg IM X1 ONE Stop: 03/11/25 02:09 given Consultations Consultation(s) initiated? (list below): No Diagnosis Urogenital Female Differential Diagnosis: urinary tract infection, ovarian cyst, cystitis and other Most likely diagnosis given after review of the tests above:: pelvic pain UTI Admission Indicated Admission indicated?: not indicated Explain why admission is indicated or not indicated:: not indicated Admission Request Was there a request for admission?: No Admission Attestation Admission request attestation: not indicated Disposition Plan Disposition Plan: Discharge Discharge Attestation Discharge Attestation: The patient and all family members were given an opportunity to ask questions and understood the discharge instructions. Discharge instructions specifically effects, indications for sooner follow up or return to the emergency department, and the expected course of current diagnosis. Patient condition: Stable Discharge Plan Plan Patient Disposition: HOME (Self Care) Patient condition on transfer: Stable Prescriptions/Referrals Prescriptions/Med Rec: New cephalexin 500 mg capsule 500 mg PO QID Qty: 40 0RF hydrocodone-acetaminophen 5-325 mg tablet 1 tab PO Q6H MDD max 4 tabs per day PRN (Reason: pain) Qty: 8 0RF ondansetron 4 mg tablet,disintegrating 4 mg PO Q8H Qty: 20 0RF No Action vitamin no.45-iron-FA 28 mg iron- 1 mg tablet,chewable 1 tab PO QDAY Referrals: Yessy Larson STRETCHER LEVELER OPERATOR HELPER [Primary Care Provider] - In 1 week Problem List Clinical Impression: Pelvic pain, Urinary tract infection Patient/Caregiver Discharge Instructions Education Materials: Urinary Tract Infections in Women, ED Pelvic Pain, Unknown Cause Additional Instructions: It is very important to see your OB regional engineer for further evaluation and treatment and possible removal of your IUD worsening symptoms or any emergent concerns such as fever chills abdominal pain nausea vomiting vaginal bleeding etc. return to the emergency room immediately or call 911 follow-up with your PCP in 2 days for reevaluation and to be referred to OB regional engineer for further evaluation and treatment of pelvic pain secondary to IUD take your medication as directed finish the course of antibiotic increase water intake keep hydrated Pedialyte Gatorade for hydration is adsvied Print Language: Algerian Stand Alone Forms: Sabrina Award Info., Patient Portal Info Letter PA/COURT OFFICER Supervising Physician PA/COURT OFFICER Supervising Physician: Dr. Philip Henley
== END 2025-03-11 03:06 | disposition home or self-care (01) ==
PROVIDERS: Nurse Practitioner Family; Emergency Provider Emergency Medicine; PCP Nurse Practitioner Family
DX: N39.0 Urinary tract infection, site not specified (principal); T83.84XA Pain due to genitourinary prosthetic devices, implants and grafts, initial encounter; Y84.8 Other medical procedures as the cause of abnormal reaction of the patient, or of later complication, without mention of misadventure at the time of the procedure
CPT/HCPCS: 36415; 76830; 80053; 81001; 81025; 83690; 85025; 96372; 99283; J0696; J3490; A9270

== ENCOUNTER → 2025-03-12 | Outpatient (CLI) | payer BC, SELFPAY ==
[2025-03-12 11:12] LABS: Basophils # (Auto) 0.0 Thou/mm3 (0.0-0.2); Basophils % (Auto) 1 % (0-2.5); Eosinophils # (Auto) 0.1 Thou/mm3 (0.0-0.5); Eosinophils % (Auto) 1 % (0-10); Hematocrit 38.1 % (36.0-46.0); Hemoglobin 12.9 g/dL (12.0-16.0); Immature Granulocytes Auto 0.02 Thou/mm3 (0.00-0.00); Lymphocytes # (Auto) 2.4 Thou/mm3 (1.0-4.8); Lymphocytes % (Auto) 29 % (10-50); Mean Corpuscular HGB Conc 33.9 g/dl (31.0-37.0); Mean Corpuscular Hemoglobin 28.0 pg (25.0-35.0); Mean Corpuscular Volume 83 fL (80-100); Monocytes # (Auto) 0.5 Thou/mm3 (0.0-0.8); Monocytes % (Auto) 6 % (0-12); Neutrophils # (Auto) 5.3 Thou/mm3 (1.8-7.7); Neutrophils % (Auto) 63 % (37-80); Nucleated Red Blood Cell # 0.00 Thou/mm3 (0.00-0.00); Nucleated Red Blood Cell % 0 /100 WBC (0); Platelet Count 264 Thou/mm3 (140-440); RDW Standard Deviation 39.1 fL (36.4-46.3); Red Blood Count 4.61 Miln/mm3 (4.00-5.20); White Blood Count 8.4 Thou/mm3 (3.6-11.0)
[2025-03-12 11:42] LABS: Alanine Aminotransferase 9 U/L (10-49); Albumin, Serum 4.4 gm/dL (3.5-5.0); Albumin/Globulin Ratio 1.6 (1.2-2.2); Alkaline Phosphatase 65 U/L (46-116); Anion Gap 10 (7-16); Aspartate Amino Transferase 13 U/L (0-34); BUN/Creatinine Ratio 16 Ratio (12-20); Beta HCG,Quantitative < 1 mIU/mL (<5.0); Bilirubin,Total 0.5 mg/dL (0.3-1.2); Blood Urea Nitrogen 8 mg/dL (9-23); Calcium 9.1 mg/dL (8.3-10.6); Calcium (Corrected) 9.1 mg/dL (8.5-10.1); Carbon Dioxide 27.4 mMol/L (20.0-31.0); Chloride 104 mMol/L (98-107); Creatinine (Component) 0.5 mg/dL (0.6-1.3); Free T4 (Free Thyroxine) 1.27 ng/dL (0.89-1.76); Globulin 2.8 gm/dL (2.3-3.5); Glucose 89 mg/dL (74-106); Osmolality,Calculated 278 (275-295); Potassium 3.9 mMol/L (3.4-5.1); Sodium 141 mMol/L (136-145); Thyroid Stimulating Hormone 3.22 uIU/mL (0.55-4.78); Total Protein 7.2 gm/dL (5.7-8.2); eGFR > 60 See Note
[2025-03-12 11:46] LABS: Follicle Stimulating Hormone 10.06 mIU/mL (See Note)
[2025-03-12 11:48] LABS: Ferritin 30 ng/mL (7.3-270.7); Iron 21 mcg/dL (50-170)
[2025-03-12 11:58] LABS: Syphilis Nonreactive (Nonreactive)
[2025-03-12 12:01] LABS: Glucose Estimated Average 120 mg/dL (80-131); Hemoglobin A1C 5.8 % Hgb (4.8-6.0)
[2025-03-20 06:27] LABS: ANA Screen, IFA NEGATIVE (NEGATIVE); DHEA Sulfate* 189 mcg/dL (23-266); Estrogen, Total, Serum* 233 pg/mL; Luteinizing Hormone* 12.5 mIU/mL; Progesterone,LC/MS* 0.2 ng/mL; Prolactin* 52.0 ng/mL; Testosterone, Free,Dialysis 1.8 pg/mL (0.1-6.4); Testosterone, Total, Dialysis 17 ng/dL (2-45)
== END | disposition home or self-care (01) ==
LOC: COPL 09:54
PROVIDERS: PCP Family Medicine; Referring Provider Specialist; Visit Provider Specialist
DX: N93.9 Abnormal uterine and vaginal bleeding, unspecified (principal); N30.00 Acute cystitis without hematuria
CPT/HCPCS: 36415; 80053; 82627; 82672; 82728; 83001; 83002; 83036; 83540; 84144; 84146; 84402; 84403; 84439; 84443; 84702; 85025; 86038; 86780; 87077; 87086; 87186